=== PATIENT | female | born 1965 | race Two or more races ===

== ENCOUNTER 2020-06-12 14:13 | Outpatient (CLI) | payer MEDICAID ==
[~2020-06-12] VITALS: Ht 160 cm; Wt 70.8 kg
[2020-06-12 14:35] VITALS: BP 142/96
[2020-06-12] MEDS ORDERED: OMEPRAZOLE40 M1 ORAL (14:36)
--- NOTE | 2020-06-12 19:59 | Consultation ---
DATE OF CONSULTATION: 06/12/2020 GASTROENTEROLOGY CONSULTATION CONSULTING PHYSICIAN: Julio Ann MD. CHIEF COMPLAINT: Chronic GERD not responding to omeprazole daily. Also complaint of referral for screening colonoscopy. PAST MEDICAL HISTORY: 1. GERD. 2. Diabetes. PAST SURGICAL HISTORY: Hernia repair. MEDICATIONS: Omeprazole. FAMILY HISTORY: Noncontributory. SOCIAL HISTORY: The patient denies any tobacco, alcohol, or drug abuse. ALLERGIES: No known allergies. REVIEW OF SYSTEMS: Positive for chronic GERD. PHYSICAL EXAMINATION: VITAL SIGNS: Temperature 97.6, blood pressure 142/92, pulse 66, respirations 20. HEENT: Normocephalic and atraumatic. Sclerae are anicteric. NECK: Supple. No evidence of obvious lymphadenopathy. CARDIOVASCULAR: Regular rate and rhythm. Plus S1, S2. LUNGS: Clear to auscultation bilaterally. ABDOMEN: Positive bowel sounds. Soft and nontender. There is a scar from prior abdominal surgeries in the midline. No rebound. No guarding. No peritoneal sign. EXTREMITIES: No edema. ASSESSMENT: This is a 55-year-old female. 1. Screening colonoscopy. 2. Chronic GERD not responding to omeprazole. PLAN: EGD and colonoscopy when authorization is obtained. Julio Ann M.D. DR: TAD JOB#: [id number] CC:
== END 2020-06-12 16:13 | disposition home or self-care (01) ==
LOC: PAN 14:13
DX: K21.9 Gastro-esophageal reflux disease without esophagitis (principal); E11.9 Type 2 diabetes mellitus without complications; Z79.899 Other long term (current) drug therapy
CPT/HCPCS: 99203